=== PATIENT | female | born 1935 | race Caucasian/White ===

== ENCOUNTER 2018-08-08 12:39 | Inpatient (IN) | payer MEDICARE, OTHER, SELFPAY ==
[~2018-08-08] VITALS: Ht 154.9 cm; Wt 67.9 kg
[2018-08-08] MEDS ORDERED: SODIUM CHLORIDE FLUSH 10ML SYR IVF ONE (13:30)
[2018-08-08 13:44] LABS: BASOPHILS # (AUTO) 0.02 x10^3/uL (0-0.1); BASOPHILS % (AUTO) 0 % (0-1); EOSINOPHILS # (AUTO) 0.11 x10^3/uL (0-0.4); EOSINOPHILS % (AUTO) 2 % (1-7); LYMPHOCYTES # (AUTO) 1.29 x10^3/uL (1-3.4); LYMPHOCYTES % (AUTO) 23 % (22-44); MD NO; MEAN CORPUSCULAR HEMOGLOBIN 29.4 pg (27.0-34.8); MEAN CORPUSCULAR HGB CONC 33.3 g/dL (32.4-35.8); MEAN CORPUSCULAR VOLUME 88.1 fL (80-100); MONOCYTES # (AUTO) 0.55 x10^3/uL (0.2-0.8); MONOCYTES % (AUTO) 10 % (2-9); NEUTROPHILS # (AUTO) 3.77 x10^3/uL (1.8-6.8); NEUTROPHILS % (AUTO) 66 % (42-75); PLATELET COUNT 139 x10^3/uL (130-400); RED BLOOD COUNT 5.17 x10^6/uL (3.82-5.3); RED CELL DISTRIBUTION WIDTH 15.6 % (9.6-15.2)
[2018-08-08] MEDS ORDERED: DILTIAZEM 5 MG/ML, 5ML ONE (13:50)
[2018-08-08 13:55] LABS: ALANINE AMINOTRANSFERASE 31 U/L (12-78); ALBUMIN 3.3 g/dL (3.4-5.0); ANION GAP 11 mmol/L (5-15); CALCIUM 9.4 mg/dL (8.5-10.1); CHLORIDE 111 mmol/L (98-107); CREATININE 0.97 mg/dL (0.55-1.02)
[2018-08-08 13:59] LABS: ALKALINE PHOSPHATASE 93 U/L (45-117); BILIRUBIN,TOTAL 1.1 mg/dL (0.2-1.0); TOTAL PROTEIN 6.2 g/dL (6.4-8.2); TROPONIN I < 0.015 ng/mL (0.000-0.045)
[2018-08-08] MEDS ORDERED: DILTIAZEM 5 MG/ML, 5ML IV ONE (14:00)
[2018-08-08] MEDS: DILTIAZEM 125 MG in DEXTROSE 5% 100 ML IV SCH (14:08)
[2018-08-08 14:13] LABS: INTERNATIONAL NORMALIZED RATIO 1.18 (0.93-1.1); PROTHROMBIN TIME 12.4 Seconds (9.6-11.5)
[2018-08-08] MEDS ORDERED: ENOXAPARIN 80 MG/0.8 ML SQ SCH (14:30)
[2018-08-08] MEDS ORDERED: ENOXAPARIN 80 MG/0.8 ML ONE (14:37)
[2018-08-08] MEDS ORDERED: ACETAMINOPHEN 325 MG TABLET PO PRN (15:00)
[2018-08-08] MEDS ORDERED: NITROGLYCERIN 0.4 MG/SPRAY SL PRN (15:00)
[2018-08-08] MEDS ORDERED: FUROSEMIDE 40 MG/4 ML IV SCH (15:00)
[2018-08-08] MEDS ORDERED: hydrALAzine 20 MG/ML, 1ML IVPush PRN (15:00)
[2018-08-08] MEDS ORDERED: morphine SULFATE 10 MG/ML, 1ML IVPush PRN (15:00)
[2018-08-08] MEDS ORDERED: NITROGLYCERIN 0.4 MG BOTTLE (25 TABS) SL PRN (15:00)
[2018-08-08] MEDS ORDERED: SODIUM CHLORIDE FLUSH 10ML SYR IVF PRN (15:00)
[2018-08-08] MEDS ORDERED: FUROSEMIDE 40 MG/4 ML ONE (16:05)
[2018-08-08] MEDS: FUROSEMIDE 40 MG/4 ML IV SCH ×2 (16:06→21:24)
[2018-08-08 17:22] VITALS: BP 137/82
[2018-08-08 19:45] LABS: TROPONIN I < 0.015 ng/mL (0.000-0.045)
[2018-08-08 20:17] VITALS: BP 122/75
[2018-08-08 21:20] VITALS: BP 105/64
[2018-08-09 01:38] LABS: ANION GAP 10 mmol/L (5-15); BASOPHILS # (AUTO) 0.04 x10^3/uL (0-0.1); BASOPHILS % (AUTO) 1 % (0-1); CALCIUM 9.5 mg/dL (8.5-10.1); CHLORIDE 110 mmol/L (98-107); CREATININE 0.82 mg/dL (0.55-1.02); EOSINOPHILS # (AUTO) 0.31 x10^3/uL (0-0.4); EOSINOPHILS % (AUTO) 5 % (1-7); LYMPHOCYTES # (AUTO) 2.09 x10^3/uL (1-3.4); LYMPHOCYTES % (AUTO) 35 % (22-44); MD NO; MEAN CORPUSCULAR HEMOGLOBIN 28.4 pg (27.0-34.8); MEAN CORPUSCULAR HGB CONC 32.4 g/dL (32.4-35.8); MEAN CORPUSCULAR VOLUME 87.7 fL (80-100); MONOCYTES # (AUTO) 0.64 x10^3/uL (0.2-0.8); MONOCYTES % (AUTO) 11 % (2-9); NEUTROPHILS # (AUTO) 2.83 x10^3/uL (1.8-6.8); NEUTROPHILS % (AUTO) 48 % (42-75); PLATELET COUNT 132 x10^3/uL (130-400); RED BLOOD COUNT 4.75 x10^6/uL (3.82-5.3); RED CELL DISTRIBUTION WIDTH 15.5 % (9.6-15.2)
[2018-08-09 01:40] VITALS: BP 125/82
[2018-08-09] MEDS: DILTIAZEM 125 MG in DEXTROSE 5% 100 ML IV SCH (01:48)
[2018-08-09 01:53] LABS: HEMOGLOBIN A1C 5.6 % (4.2-6.3); TROPONIN I 0.017 ng/mL (0.000-0.045)
[2018-08-09 05:35] LABS: TROPONIN I 0.019 ng/mL (0.000-0.045)
[2018-08-09 05:43] VITALS: BP 119/77
[2018-08-09] MEDS ORDERED: POTASSIUM CHLORIDE 10% 40 MEQ/30 ML UDC PO ONE (08:00)
[2018-08-09] MEDS: METOPROLOL TARTRATE 25 MG TABLET PO SCH ×2 (08:00→17:58)
[2018-08-09 08:01] VITALS: BP 121/72
[2018-08-09] MEDS: FUROSEMIDE 40 MG/4 ML IV SCH ×2 (10:44→17:57)
[2018-08-09] MEDS: APIXABAN 5 MG TABLET PO SCH ×2 (10:49→20:07)
[2018-08-09 11:30] LABS: TROPONIN I < 0.015 ng/mL (0.000-0.045)
[2018-08-09 12:29] VITALS: BP 107/73
[2018-08-09] MEDS ORDERED: DILTIAZEM 125 MG in DEXTROSE 5% 100 ML IV SCH (13:38)
[2018-08-09] MEDS ORDERED: POTASSIUM CHLORIDE 20 MEQ TAB.ER.PRT PO ONE (14:00)
[2018-08-09 19:36] VITALS: BP 124/82
[2018-08-10 02:08] VITALS: BP 124/74
[2018-08-10] MEDS: METOPROLOL TARTRATE 25 MG TABLET PO SCH (05:16)
[2018-08-10 09:33] VITALS: BP 99/61
[2018-08-10] MEDS: APIXABAN 5 MG TABLET PO SCH ×2 (09:42→20:35)
[2018-08-10] MEDS: FUROSEMIDE 40 MG/4 ML IV SCH ×2 (09:42→17:16)
[2018-08-10 11:21] LABS: ANION GAP 8 mmol/L (5-15); CALCIUM 9.8 mg/dL (8.5-10.1); CHLORIDE 105 mmol/L (98-107); CREATININE 0.95 mg/dL (0.55-1.02)
[2018-08-10 12:12] VITALS: BP 122/79
[2018-08-10] MEDS ORDERED: POTASSIUM CHLORIDE 20 MEQ TAB.ER.PRT PO ONE (12:30)
[2018-08-10] MEDS ORDERED: MAGNESIUM SULFATE PMX 2GM/50ML 50 ML IV ONE ×2 (12:30→14:00)
[2018-08-10 17:14] VITALS: BP 119/73
[2018-08-10] MEDS: POTASSIUM CHLORIDE 10 MEQ TABLET.ER PO SCH (17:15)
[2018-08-10] MEDS ORDERED: METOPROLOL TARTRATE 25 MG TABLET PO SCH (18:00)
[2018-08-10 20:26] VITALS: BP 125/75
[2018-08-11 01:03] VITALS: BP 124/76
[2018-08-11] MEDS: METOPROLOL SUCCINATE 50 MG TAB.ER.24H PO SCH (05:45)
[2018-08-11 05:49] LABS: ANION GAP 8 mmol/L (5-15); CALCIUM 9.5 mg/dL (8.5-10.1); CHLORIDE 107 mmol/L (98-107)
[2018-08-11 05:50] LABS: CREATININE 0.99 mg/dL (0.55-1.02)
[2018-08-11 08:19] VITALS: BP 112/68
[2018-08-11] MEDS: APIXABAN 5 MG TABLET PO SCH ×2 (08:21→20:28)
[2018-08-11] MEDS: LOSARTAN 25MG TABLET PO SCH (08:21)
[2018-08-11] MEDS: POTASSIUM CHLORIDE 10 MEQ TABLET.ER PO SCH ×2 (08:21→17:25)
[2018-08-11] MEDS: FUROSEMIDE 40 MG/4 ML IV SCH (08:21)
[2018-08-11] MEDS: SPIRONOLACTONE 25 MG TABLET PO SCH (08:21)
[2018-08-11 13:55] VITALS: BP 101/64
[2018-08-11] MEDS ORDERED: POTA10TA5 PO (15:36)
[2018-08-11] MEDS ORDERED: LOSA25TA2 PO (15:36)
[2018-08-11] MEDS ORDERED: FURO40TA6 PO (15:36)
[2018-08-11] MEDS ORDERED: SPIR25TA PO (15:36)
[2018-08-11] MEDS ORDERED: APIX5TAB PO (15:36)
[2018-08-11] MEDS ORDERED: METO-93 PO (15:36)
[2018-08-11 19:12] VITALS: BP 126/84
[2018-08-12 00:20] VITALS: BP 145/85
[2018-08-12] MEDS: METOPROLOL SUCCINATE 50 MG TAB.ER.24H PO SCH (05:12)
[2018-08-12 07:08] VITALS: BP 114/77
[2018-08-12] MEDS: SPIRONOLACTONE 25 MG TABLET PO SCH (08:15)
[2018-08-12] MEDS: POTASSIUM CHLORIDE 10 MEQ TABLET.ER PO SCH (08:15)
[2018-08-12] MEDS: APIXABAN 5 MG TABLET PO SCH (08:15)
[2018-08-12] MEDS: LOSARTAN 25MG TABLET PO SCH (08:19)
[2018-08-12] MEDS ORDERED: FUROSEMIDE 40 MG TABLET PO SCH (09:00)
== END 2018-08-12 12:37 | disposition home health service (06) | DRG 308 ==
LOC: ED 14:45 → 5SO 14:57 → ED 14:57 → DCLOUNGE 08-12 12:30
PROVIDERS: ADMIT Hospitalist; ATTEND Hospitalist
DX: I48.91 Unspecified atrial fibrillation (principal); I50.41 Acute combined systolic (congestive) and diastolic (congestive) heart failure; D68.69 Other thrombophilia; I11.0 Hypertensive heart disease with heart failure; I42.9 Cardiomyopathy, unspecified; R29.6 Repeated falls; E83.42 Hypomagnesemia; E87.6 Hypokalemia; I08.1 Rheumatic disorders of both mitral and tricuspid valves; Z66 Do not resuscitate; Z79.01 Long term (current) use of anticoagulants; Z87.891 Personal history of nicotine dependence; Z91.19 Patient's noncompliance with other medical treatment and regimen
CPT/HCPCS: 36415; 71045; 80048; 80053; 83036; 83735; 83880; 84443; 84484; 85025; 85610; 85730; 93005; 93306; 96372; 96374; 99291; G0378; J1650; J1940; J3475